=== PATIENT | male | born 2005 | race Caucasian/White ===

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

== ENCOUNTER 2025-02-09 13:13 | Emergency (ER) | payer SELFPAY ==
[~2025-02-09] VITALS: Ht 165.1 cm; Wt 59.0 kg
[2025-02-09 13:16] VITALS: O2SAT 98
[2025-02-09 13:36] VITALS: BP 123/74; PULSE 72; RESP 18; TEMP 36.6; O2SAT 100
== END 2025-02-09 15:28 | disposition home or self-care (01) ==
LOC: ER 13:13
DX: N52.9 Male erectile dysfunction, unspecified (principal)
CPT/HCPCS: 99282